=== PATIENT | female | born 1985 | race Caucasian/White ===

== ENCOUNTER 2020-02-24 12:53 | Emergency (ER) | payer BC, SELFPAY ==
--- NOTE | ~2020-02-24 | XR_ITS ---
XR chest 1V portable DATE: 02/24/2020 13:23 INDICATION: Cough TECHNIQUE: Portable upright AP chest on 02/24/2020 at 1318 hours COMPARISON: None FINDINGS: Normal heart size. No hilar or mediastinal enlargement. No pulmonary infiltrate or consolid ation, pleural effusion or pulmonary vascular congestion or pneumothorax. IMPRESSION: No active cardiopulmonary disease Reviewed, dictated and finalized at location A.
[2020-02-24 13:09] VITALS: BP 161/108; PULSE 99; RESP 16; TEMP 36.7; O2SAT 99
--- NOTE | 2020-02-24 13:39 | ED.ABDPAIN ---
HPI - Abdominal Pain General Chief Complaint: Unspecified <VARSHA Waters Last Filed: 02/24/20 13:52> Stated Complaint: SPITTING UP BLOOD CLOTS <VARSHA Waters Last Filed: 02/24/20 13:52> Time Seen by Provider: 02/24/20 13:00 <VARSHA Waters Last Filed: 02/24/20 13:52> Source: patient <VARSHA Waters Last Filed: 02/24/20 13:52> Mode of arrival: ambulatory <VARSHA Waters Last Filed: 02/24/20 13:52> Limitations: no limitations <VARSHA Waters Last Filed: 02/24/20 13:52> History of Present Illness HPI narrative: Patient is a 35-year-old female who presents to emergency department for evaluation of upper respiratory symptoms with productive cough noting today she thought she coughed some blood in her phlegm which has been described as green patient's family member is positive for COVID and she is being tested currently patient in the room in no distress resting comfortably patient has tried [id number] medications her physician called in a Z-Quan and Flonase on arrival as noted patient in the room in no distress denies vomiting or diarrhea. Patient on arrival in no distress <VARSHA Waters Last Filed: 02/24/20 13:52> Related Data Home Medications: Home Medications Medication Instructions Recorded Confirmed levonorgestrel 0.15 mg-ethinyl 1 tablet PO DAILY 06/14/19 12/21/19 estradiol 0.03 mg tablet multivitamin-ferrous 1 tablet PO DAILY 06/14/19 12/21/19 fumarate-folic acid 18 mg-400 mcg tablet vitamin B complex 1 tablet PO DAILY 06/14/19 12/21/19 zolmitriptan 5 mg tablet See Rx Instructions PO .COMPLEX 06/14/19 12/21/19 <VARSHA Waters Last Filed: 02/24/20 13:52> Allergies/Adverse Reactions: Allergies Allergy/AdvReac Type Severity Reaction Status Date / Time No Known Allergies Allergy Unverified 06/14/19 11:21 <VARSHA Waters Last Filed: 02/24/20 13:52> Review of Systems Review of Systems: All systems reviewed & are unremarkable except as noted in HPI and below <Flaco Carter PA-C - Last Filed: 02/24/20 13:52> [facility] Past Medical History Medical History: Medical History Candidiasis Chronic low back pain with right-sided sciatica Chronic pain of both knees Exposure to COVID-19 virus Hypersomnia <Flaco Carter PA-C - Last Filed: 02/24/20 13:52> Family History Family History: Family History (Updated 10/08/18 @ 11:56 by DOCTOR UNKNOWN) Mother Patient's mother is in good health Father Patient's father is in good health Sibling Patient's brother is in good health Grandparent Family history of kidney disease, Onset Age: 84 <Flaco Carter PA-C - Last Filed: 02/24/20 13:52> Social History Social History: Social History Smoking status: Never smoker Alcohol intake: never Gender identity (if verbalized by the patient): Female <Flaco Carter PA-C - Last Filed: 02/24/20 13:52> Exam Narrative: Exam Narrative: GENERAL: Well-appearing, well-nourished, and in no acute distress. HEAD: Normocephalic, atraumatic. EYES: PERRLA and EOMI. ENT: Nares clear, no rhinorrhea or epistaxis. Mucous membranes moist. Oropharynx without tonsillar hypertrophy exudate or other lesions. CHEST: Clear to auscultation. No respiratory distress. No wheezes rales or rhonchi HEART: Regular rate and rhythm. No murmur heard. EXTREMITIES: Normal range of motion. No edema. SKIN: Warm, dry, no rash. NEURO: No focal deficits. Alert and oriented x3. PSYCH: Normal mood and affect. <Flaco Carter PA-C - Last Filed: 02/24/20 13:52> Course Course Emergency Course: Patient in the room in no distress aware of case findings treatment plan and diagnosis agreeing to follow-up as directed <VARSHA Waters
[2020-02-24 14:03] VITALS: BP 147/98; PULSE 86; RESP 18; O2SAT 99
== END 2020-02-24 14:04 | disposition home or self-care (01) ==
PROVIDERS: Emergency Provider General Practice; PCP Family Medicine
DX: J06.9 Acute upper respiratory infection, unspecified (principal)
CPT/HCPCS: 71045; 99283

== ENCOUNTER 2020-10-19 15:56 | Outpatient (CLI) | payer BC, SELFPAY ==
--- NOTE | ~2020-10-19 | CT_ITS ---
EXAMINATION: CT chest high resolution wo hi DATE: 10/19/2020 16:31 INDICATION: Shortness of breath and cough, history of COVID 19 pneumonia TECHNIQUE: Computed tomography (CT) of the chest was performed without intravenous contrast. The dose -length product (DLP) was 775.84 mGy-cm. Automated exposure control and iterative reconstruction tech [id number] were employed. COMPARISON: None FINDINGS: The lungs are free of acute opacities. There is no pleural effusion or pneumothorax. Calcif ied nodules of the left lower lobe and at the left hilum and calcified mediastinal lymph nodes. No pa thologically enlarged thoracic lymph nodes are identified. The heart size is normal. The liver is dif fusely low in attenuation when compared with the spleen, consistent with hepatic steatosis. There is mild thoracic spondylosis. IMPRESSION: 1. No CT correlate for the patient's symptoms. Reviewed, dictated and finalized at location A.
== END 2020-10-19 15:57 | disposition home or self-care (01) ==
PROVIDERS: PCP Family Medicine; Visit Provider Family Medicine
DX: R06.02 Shortness of breath (principal)
CPT/HCPCS: 71250

== ENCOUNTER 2020-11-02 12:10 | Outpatient (CLI) | payer BC, SELFPAY ==
--- NOTE | 2020-11-03 13:27 | WPDPFTINT ---
PFT Interpretation This PFT met all criteria for ATS standards and reproducibility FEV/FVC pre bronchodilator 76% FEV1 83% FVC 89% Post bronchodilator FEV1 was not reliable as it seems to have decreased significantly possibly due to patient coughing or effort. TLC 103% of predicted RV 114% of predicted RV/TLC 34% of predicted DLCO 91% of predicted when adjusted for alveolar volume but not adjusted for hemoglobin Flow volume loops were normal Impression: the pre bronchodilator spirometry, lung volumes, diffusion capacity and flow volume loops indicate that this is a normal pulmonary function test. There were some uninterpretable data on the post bronchodilator spirometry.Clinical correlation is advised. PFT Procedure Performed PFT Procedure Performed Spirometry with Pre/Post Bronchodilator Plethysmography (Lung Vol) Diffusing Cap (DLCO) Flow Vol Loop
== END 2020-11-02 12:11 | disposition home or self-care (01) ==
PROVIDERS: PCP Family Medicine; Visit Provider Family Medicine
DX: R06.02 Shortness of breath (principal)
CPT/HCPCS: 94060; 94726; 94729

== ENCOUNTER 2021-04-17 13:42 | Outpatient (CLI) | payer BC, SELFPAY ==
--- NOTE | ~2021-04-17 | US_ITS ---
EXAMINATION: US soft tissue UE RT DATE: 04/17/2021 14:05 INDICATION: Localized swelling, mass and lump at the radial aspect of the right wrist TECHNIQUE: Multiple grayscale and Doppler ultrasound images of the region of concern at the right wri st were obtained. COMPARISON: Right wrist radiographs dated 04/02/2021 FINDINGS: 1.1 x 1.0 x 0.6 similar anechoic cyst at the region of concern without internal flow on color Doppler . This lies along side the right radial artery and nerve and along the superficial margin of one of t he flexor tendons, most likely the flexor carpi radialis. IMPRESSION: 1. Palpable abnormality of concern corresponds to a 11 x 10 x 6 cm anechoic likely ganglion cyst. Reviewed, dictated and finalized at location B. IMPRESSION: 1. Palpable abnormality of concern corresponds to a 11 x 10 x 6 cm anechoic lik adam ganglion cyst.
== END 2021-04-17 13:43 | disposition home or self-care (01) ==
LOC: ANHIMG 13:45
PROVIDERS: PCP Family Medicine; Visit Provider Orthopaedic Surgery
DX: M25.831 Other specified joint disorders, right wrist (principal)
CPT/HCPCS: 76882

== ENCOUNTER → 2023-07-03 14:14 | Outpatient (CLI) | payer BC, SELFPAY ==
--- NOTE | ~2023-07-03 | MM_ITS ---
EXAMINATION: MM screening buster BI w anusha HISTORY: Screening mammogram TECHNIQUE: Craniocaudal and mediolateral oblique 3-D tomosynthesis images were obtained and synthetic 2-D images were generated. CAD analysis was submitted and interpreted. COMPARISON: No prior mammogram is available for comparison at this institution. BREAST PARENCHYMAL COMPOSITION: There are scattered areas of fibroglandular density. FINDINGS: There is no evidence of suspicious mass, calcification, or architectural distortion to sugg est malignancy in either breast. There has been no suspicious interval change. IMPRESSION: 1. No mammographic evidence of malignancy. 2. Recommend routine screening mammography in one year. BI-RADS Category 1: Negative Reviewed, dictated and finalized at location A. [employer]
== END ==
PROVIDERS: PCP Obstetrics & Gynecology; Visit Provider Obstetrics & Gynecology
DX: Z12.31 Encounter for screening mammogram for malignant neoplasm of breast (principal)
CPT/HCPCS: 77063; 77067

== ENCOUNTER 2023-08-27 10:11 | Outpatient (CLI) | payer BC, SELFPAY ==
[2023-08-27 11:36] LABS: Influenza A QL RT-PCR Negative (Negative); Influenza B QL RT-PCR Negative (Negative); RSV RNA, RT-PCR Negative (Negative); SARS-CoV-2 RNA PCR Negative (Negative)
== END 2023-08-27 10:12 | disposition home or self-care (01) ==
LOC: ANHLAB 10:12
PROVIDERS: PCP Obstetrics & Gynecology; Visit Provider Nurse Practitioner Family
DX: R68.89 Other general symptoms and signs (principal); Z20.822 Contact with and (suspected) exposure to COVID-19
CPT/HCPCS: 87637